=== PATIENT | female | born 1990 | race Caucasian/White ===

== ENCOUNTER 2017-04-24 15:07 | Inpatient (IN) | payer BC, OTHER ==
[2017-07-21] MEDS ORDERED: OXYTOCIN 10000 MU/ML SOL IM PRN (09:49)
[2017-07-21] MEDS ORDERED: CARBOPROST 250 MCG/ML SOL IM PRN (09:49)
[2017-07-21] MEDS ORDERED: MEPIVACAINE HCL 1% MPF 30 ML SOL INFIL PRN (09:49)
[2017-07-21] MEDS ORDERED: METHYLERGONOVINE MALEATE 0.2 MG/ML SOL IM PRN (09:49)
[2017-07-21] MEDS ORDERED: FENTANYL 100MCG/2ML SOL IV PRN (09:49)
[2017-07-21] MEDS ORDERED: LACTATED RINGERS 1,000 ML IV PRN (09:49)
[2017-07-21] MEDS ORDERED: SODIUM CHLORIDE 0.9% FLUSH 10 ML SOL IV PRN (09:49)
[2017-07-21 09:56] LABS: BASOPHILS % (AUTO) 0 % (0-3); EOSINOPHILS % (AUTO) 3 % (0-9); HEMATOCRIT 36 % (35-47); MEAN CORPUSCULAR HGB CONC 34.8 gm/dl (32.0-36.0); MEAN CORPUSCULAR VOLUME 95 fL (81-99); MONOCYTES % (AUTO) 6.1 % (0-12)
[2017-07-21] MEDS ORDERED: SODIUM CHLORIDE 0.9% FLUSH 10 ML SOL IV SCH (10:00)
[2017-07-21] MEDS ORDERED: BENZOCAINE/MENTHOL 1 SPR TOP PRN (11:34)
[2017-07-21] MEDS ORDERED: METHYLERGONOVINE MALEATE 0.2 MG TAB PO PRN (11:34)
[2017-07-21] MEDS ORDERED: WITCH HAZEL 1 EA PAD TOP PRN (11:34)
[2017-07-21] MEDS ORDERED: FLEET ENEMA PR PRN (11:34)
[2017-07-21] MEDS ORDERED: BISACODYL 10 MG SUP PR PRN (11:34)
[2017-07-21] MEDS ORDERED: TEMAZEPAM 15MG 15 MG CAP PO PRN (11:34)
[2017-07-21 11:49] VITALS: RESP 16
[2017-07-21] MEDS: IBUPROFEN 600 MG TAB PO PRN (12:20)
[2017-07-21] MEDS: APAP/HYDROCODONE 325/5 TAB PO PRN ×2 (16:23→21:17)
[2017-07-21] MEDS: DOCUSATE SODIUM 100 MG SGL PO SCH (21:17)
[2017-07-22] MEDS: APAP/HYDROCODONE 325/5 TAB PO PRN (04:31)
[2017-07-22] MEDS: IBUPROFEN 600 MG TAB PO PRN ×3 (09:19→22:23)
[2017-07-22] MEDS: DOCUSATE SODIUM 100 MG SGL PO SCH ×2 (09:19→21:00)
[2017-07-22 22:39] VITALS: O2SAT 97
[2017-07-23] MEDS: IBUPROFEN 600 MG TAB PO PRN ×2 (04:37→12:50)
[2017-07-23] MEDS: DOCUSATE SODIUM 100 MG SGL PO SCH (09:16)
[2017-07-23 13:36] VITALS: BP 116/75; PULSE 78; TEMP 98.1
== END 2017-07-23 13:05 | disposition home or self-care (01) | DRG 775 ==
LOC: UNDOADMOB 15:07 → OB 15:07 → OBSVTOIN 07-21 09:21 → OB 07-21 09:21
PROVIDERS: ADMIT Family Medicine; ATTEND Family Medicine
PROC: 10E0XZZ Delivery of Products of Conception, External Approach (ICD-10-PCS; principal; 2017-07-21)
PROC: 10907ZC Drainage of Amniotic Fluid, Therapeutic from Products of Conception, Via Natural or Artificial Opening (ICD-10-PCS; 2017-07-21)
DX: O80 Encounter for full-term uncomplicated delivery (principal); Z37.0 Single live birth; Z3A.39 39 weeks gestation of pregnancy
CPT/HCPCS: 36415; 59025; 85018; 85025; J0670; J2590